=== PATIENT | male | born 1990 | race Two or more races ===

== ENCOUNTER 2020-10-02 12:20 | Emergency (ER) | payer MEDICAID, OTHER ==
[~2020-10-02] VITALS: Ht 172.7 cm; Wt 72.6 kg
--- NOTE | 2020-10-02 12:35 | NUR ---
BIB SELF C/FEVER, NAUSEA AND VOMITING, AND SOB X 4 DAYS. [employer]. 100% RA SATS. +COVID 1 MONTH AGO. NEVER RE TESTED SINCE. VS CHECKED. HOOKED ON MONITOR. IV ACCESS STARTED BLOOD DRAW DONE SENT TO LAB. AWAITING MD VARGSA
--- NOTE | 2020-10-02 13:30 | NUR ---
pt states he is still unable to provide urine specimen. aware.
[2020-10-02 13:40] LABS: BASOPHILS % (AUTO) 0.5 % (0.0-2.0); EOSINOPHILS % (AUTO) 0.4 % (0.0-6.0); HEMATOCRIT 43 % (39-51); HEMOGLOBIN 14.7 g/dL (13.5-17.5); LYMPHOCYTES # (AUTO) 2.1 /CMM (0.8-4.8); LYMPHOCYTES % (AUTO) 27.2 % (20.0-44.0); MEAN CORPUSCULAR HGB CONC 35 g/dl (31.0-36.0); MEAN CORPUSCULAR VOLUME 92 fL (80-96); MONOCYTES # (AUTO) 0.8 /CMM (0.1-1.30); MONOCYTES % (AUTO) 9.9 % (2.0-12.0); NEUTROPHILS # (AUTO) 4.8 /CMM (1.8-8.9); PLATELET COUNT (AUTO) 177 /CMM (150-450); RED BLOOD CELL COUNT(AUTO) 4.62 MIL/uL (4.5-6.0); WHITE BLOOD COUNT (AUTO) 7.8 K/uL (4.3-11.0)
[2020-10-02] MEDS: IV NS 0.9% 1,000 ML BAG IV ONE (13:45)
[2020-10-02] MEDS: ONDANSETRON HCL/PF 4 MG/2 ML VIAL IVP ONE (13:45)
[2020-10-02] MEDS ORDERED: ONDANSETRON HCL/PF 4 MG/2 ML VIAL ONE (13:47)
[2020-10-02 13:54] LABS: CALCIUM, SERUM 9.1 mg/dL (8.5-10.1); CREATININE 1.1 mg/dL (0.6-1.3); POTASSIUM 3.1 mmol/L (3.5-5.1)
[2020-10-02 14:00] LABS: ALBUMIN 4.1 g/dL (3.4-5.0); BILIRUBIN,DIRECT 0.5 mg/dL (0.0-0.2); BILIRUBIN,TOTAL 1.4 mg/dL (0.2-1.0); TOTAL PROTEIN, SERUM 7.7 g/dL (6.4-8.2)
[2020-10-02] MEDS ORDERED: IOHEXOL-300 100 ML VIAL IV ONE (14:39)
[2020-10-02] MEDS ORDERED: IV NS 0.9% 250 ML IV ONE (14:39)
[2020-10-02] MEDS: POTASSIUM CHLORIDE 20 MEQ TAB.PRT.SR PO ONE (15:15)
[2020-10-02] MEDS ORDERED: POTASSIUM CHLORIDE 20 MEQ TAB.PRT.SR PO ONE (15:30)
--- NOTE | 2020-10-02 15:45 | NUR ---
pt still unable to provided urine. made aware, per md its okay, can go d/c home
--- NOTE | 2020-10-02 15:47 | NUR ---
Patient discharged to home in stable condition. Written and verbal after care instructions given. Patient verbalizes understanding of instruction. IV removed. Catheter intact and site benign. Pressure and 4x4 applied to site. No bleeding noted.
[2020-10-02 15:48] VITALS: BP 142/78
== END 2020-10-02 15:49 | disposition home or self-care (01) ==
LOC: ER 12:23
DX: R11.2 Nausea with vomiting, unspecified (principal); R53.1 Weakness; F17.200 Nicotine dependence, unspecified, uncomplicated
CPT/HCPCS: 71045; 74177; 80048; 80076; 83605; 83690; 85025; 96361; 96374; 99285; J2405; J7030; J7050; Q9967

== ENCOUNTER 2024-06-19 22:27 | Emergency (ER) | payer MEDICAID ==
[~2024-06-19] VITALS: Ht 172.7 cm; Wt 77.1 kg
[2024-06-20] MEDS ORDERED: MORPHINE SULFATE INJ 4 MG/ML DISP.SYRIN ONE (00:09)
[2024-06-20] MEDS ORDERED: METOCLOPRAMIDE HCL 10 MG/2 ML VIAL ONE (00:09)
[2024-06-20] MEDS: IV NS 0.9% 1,000 ML BAG IV ONE (00:16)
[2024-06-20] MEDS: METOCLOPRAMIDE HCL 10 MG/2 ML VIAL IV ONE (00:16)
[2024-06-20] MEDS: MORPHINE SULFATE INJ 2 MG/ML DISP.SYRIN IV ONE (00:16)
[2024-06-20 00:17] LABS: BASOPHILS # (AUTO) 0.1 K/uL (0.0-0.2); BASOPHILS % (AUTO) 0.6 % (0.0-2.0); EOSINOPHILS # (AUTO) 0.1 K/uL (0.0-0.7); EOSINOPHILS % (AUTO) 0.5 % (0.0-6.0); HEMATOCRIT 46 % (39-51); HEMOGLOBIN 15.4 g/dL (13.5-17.5); LYMPHOCYTES # (AUTO) 2.1 K/uL (0.8-4.8); MEAN CORPUSCULAR HEMOGLOBIN 31 PG (26.0-33.0); MEAN CORPUSCULAR HGB CONC 34 g/dl (31.0-36.0); MEAN CORPUSCULAR VOLUME 93 fL (80-96); MONOCYTES # (AUTO) 0.6 K/uL (0.1-1.30); MONOCYTES % (AUTO) 6.1 % (2.0-12.0); NEUTROPHILS # (AUTO) 7.6 K/uL (1.8-8.9); NEUTROPHILS % (AUTO) 72.8 % (43.0-81.0); PLATELET COUNT (AUTO) 193 K/uL (150-450); RED BLOOD CELL COUNT(AUTO) 4.94 MIL/uL (4.5-6.0); RED CELL DISTRIBUTION WIDTH 13.1 % (11.5-15.0); WHITE BLOOD COUNT (AUTO) 10.4 K/uL (4.3-11.0)
[2024-06-20] MEDS ORDERED: CT SWABBABLE VALVE TRANS SET 1 EA INFUS.SET MC ONE (00:28)
[2024-06-20] MEDS ORDERED: IOHEXOL-300 100 ML VIAL IV ONE (00:28)
[2024-06-20] MEDS ORDERED: IV NS 0.9% 250 ML IV ONE (00:28)
[2024-06-20 00:29] LABS: CALCIUM, SERUM 9.4 mg/dL (8.5-10.1); POTASSIUM 3.5 mmol/L (3.5-5.1)
[2024-06-20 00:34] LABS: ALBUMIN 4.5 g/dL (3.4-5.0); BILIRUBIN,DIRECT 0.3 mg/dL (0.0-0.2); BILIRUBIN,TOTAL 1.2 mg/dL (0.2-1.0); TOTAL PROTEIN, SERUM 7.5 g/dL (6.4-8.2)
[2024-06-20 02:00] VITALS: BP 131/75; TEMP 98; O2SAT 99
== END 2024-06-20 02:00 | disposition home or self-care (01) ==
LOC: ER 22:27
DX: K52.9 Noninfective gastroenteritis and colitis, unspecified (principal); R10.84 Generalized abdominal pain; R11.2 Nausea with vomiting, unspecified; F17.200 Nicotine dependence, unspecified, uncomplicated
CPT/HCPCS: 36415; 80048-TC; 80076-TC; 83690-TC; 85025-TC; J2270; J2765; J7030; J7050; Q9967